=== PATIENT | male | born 1980 | race Caucasian/White ===

== ENCOUNTER 2017-04-14 08:57 | Emergency (ER) | payer OTHER ==
[2017-04-14] MEDS: IPRATROPIUM 0.5MG/ALBUTEROL 2.5MG INH SOL UD 3ML (DUONEB)(J7620) NEB (09:20)
== END 2017-04-14 09:41 | disposition home or self-care (01) ==
LOC: M ED 08:57
DX: J20.9 Acute bronchitis, unspecified (principal)
CPT/HCPCS: 94640

== ENCOUNTER 2018-06-15 01:27 | Emergency (ER) | payer OTHER, SELFPAY ==
[~2018-06-15] VITALS: Ht 188 cm; Wt 122.7 kg
[~2018-06-15 01:27] MED LIST: ALBU83IN INH; PRED20TA PO
[2018-06-15] MEDS ORDERED: ZANA2CAP PO (01:33)
[2018-06-15] MEDS ORDERED: MELO15TA28 PO (01:33)
[2018-06-15] MEDS ORDERED: KETOROLAC 30 MG/ML VIAL (J1885) As Ordered ONE (01:43)
[2018-06-15] MEDS ORDERED: MORPHINE 4 MG/ML 1ML VIAL/SYRINGE (J2270) As Ordered ONE (01:59)
[2018-06-15] MEDS ORDERED: NS 1,000 ML IV ONE (02:00)
[2018-06-15] MEDS ORDERED: MORPHINE 4 MG/ML 1ML VIAL/SYRINGE (J2270) IV PRN (02:00)
[2018-06-15] MEDS ORDERED: ONDANSETRON 4MG/2ML VIAL (J2405) IV ONE (02:00)
[2018-06-15] MEDS ORDERED: KETOROLAC 30 MG/ML VIAL (J1885) IV ONE (02:00)
[2018-06-15] MEDS ORDERED: METAL LOCK LOOP XX ONE (02:02)
[2018-06-15 02:06] LABS: BASO # 0.1 10^3/uL (0.0-0.2); EOS # 0.4 10^3/uL (0.0-0.50); EOS % 2.8 % (0.0-3.0); HEMATOCRIT 44.1 % (42.0-52.0); HEMOGLOBIN 15.1 g/dl (13.5-17.5); LYMPH # 4.5 10^3/uL (1.5-4.5); LYMPH % 31.6 % (24.0-44.0); MEAN CORPUSCULAR HEMOGLOBIN 31.7 pg (27.0-33.0); MEAN CORPUSCULAR HGB CONC 34.2 g/dl (32.0-36.5); MEAN CORPUSCULAR VOLUME 92.5 fl (80.0-96.0); MONO # 1.2 10^3/uL (0.0-0.8); MONO % 8.8 % (0.0-5.0); NEUTROPHILS # 7.8 10^3/uL (1.8-7.7); PLATELET COUNT, AUTOMATED 321 10^3/uL (150-450); RED BLOOD COUNT 4.77 10^6/uL (4.30-6.10); WHITE BLOOD COUNT 14.1 10^3/uL (4.0-10.0)
[2018-06-15 02:30] LABS: ALT/SGPT 47 U/L (12-78); BILIRUBIN,DIRECT < 0.1 MG/DL (0.0-0.2); BILIRUBIN,TOTAL 0.2 MG/DL (0.2-1.0); BLOOD UREA NITROGEN 18 MG/DL (7-18); CALCIUM LEVEL 8.5 MG/DL (8.5-10.1); CARBON DIOXIDE LEVEL 27 MEQ/L (21-32); CHLORIDE LEVEL 106 MEQ/L (98-107); CREATININE FOR GFR 1.22 MG/DL (0.70-1.30); GLOMERULAR FILTRATION RATE > 60.0 (>60); GLUCOSE, FASTING 137 MG/DL (70-100); LIPASE 225 U/L (73-393); POTASSIUM SERUM 3.6 MEQ/L (3.5-5.1); SODIUM LEVEL 141 MEQ/L (136-145); TOTAL PROTEIN 7.5 GM/DL (6.4-8.2)
[2018-06-15] MEDS ORDERED: METOCLOPRAMIDE INJ 10MG/2ML VIAL (J2765) IV ONE (02:45)
--- NOTE | 2018-06-15 04:03 | REPVR ---
EXAM: CT Abdomen and Pelvis Without Contrast EXAM DATE/TIME: 06/15/2018 3:06 AM CLINICAL HISTORY: 38 years old, male; Pain; Abdominal pain; Flank; Right; Additional info: Right sided flank/abd pain TECHNIQUE: Axial computed tomography images of the abdomen and pelvis without contrast. All CT scans at this facility use at least one of these dose optimization techniques: automated exposure control; mA and/or kV adjustment per patient size (includes targeted exams where dose is matched to clinical indication); or iterative reconstruction. Coronal and sagittal reformatted images were created and reviewed. COMPARISON: No relevant prior studies available. FINDINGS: Lower thorax: There is minimal bibasilar subsegmental atelectasis. ABDOMEN: Liver: There are no focal liver lesions present. Gallbladder and bile ducts: The gallbladder appears partially contracted. No stones are identified. No biliary ductal dilation is seen. Pancreas: The pancreas is normal with no ductal dilation. Spleen: The spleen is normal. Adrenals: The adrenal glands are normal. Kidneys and ureters: There is mild right hydronephrosis. There is mild right sided perinephric stranding. There is an obstructing 4 x 5 mm stone in the distal right ureter, approximately 2 cm from the UVJ. The left ureter appears normal with no stones or hydronephrosis. Stomach and bowel: The small bowel appears unremarkable. There is no dilation or thickening of the colon. Appendix: A normal appendix is identified. PELVIS: Bladder: The bladder is mostly collapsed. No bladder stones are identified. Reproductive: The prostate gland and seminal vesicles are normal. ABDOMEN and PELVIS: Intraperitoneal space: There is no evidence of free intraperitoneal or pelvic fluid. There is no free intraperitoneal air. Bones/joints: No suspicious osseous lesions. No acute fractures or dislocations. Bilateral pars defects are noted at L5 with no associated listhesis. Degenerative disc disease is present at L5-S1. Soft tissues: Unremarkable. Vasculature: The aorta is normal. No aneurysm. Lymph nodes: No lymphadenopathy is seen. IMPRESSION: Obstructing 4 x 5 mm stone in the distal right ureter with associated mild right-sided hydronephrosis and mild right perinephric stranding. Electronically signed by: Julianne Denny On 06/15/2018 04:02:23 AM
[2018-06-15] MEDS ORDERED: CIPR-249 PO (05:00)
[2018-06-15] MEDS ORDERED: FLOM0.4C39 PO (05:00)
[2018-06-15] MEDS ORDERED: PERC5TAB12 PO (05:00)
[2018-06-15] MEDS ORDERED: OXYCODONE/APAP 5MG/325MG(BULK FOR ED) 1 TABLET PO ONE (05:00)
[2018-06-15] MEDS ORDERED: CIPROFLOXACIN 500 MG TAB PO ONE (05:00)
[2018-06-15] MEDS ORDERED: TAMSULOSIN 0.4 MG CAP PO ONE (05:00)
[2018-06-15] MEDS ORDERED: HYDROMORPHONE HCL 0.5 MG/ 0.5 ML SYRINGE (J1170 PER 1) IV PRN (05:00)
[2018-06-15 05:20] VITALS: BP 123/79
== END 2018-06-15 05:22 | disposition home or self-care (01) ==
LOC: M ED 01:27
DX: N20.1 Calculus of ureter (principal); M51.9 Unspecified thoracic, thoracolumbar and lumbosacral intervertebral disc disorder; Z79.899 Other long term (current) drug therapy
CPT/HCPCS: 74176; 80048; 80076; 81001; 83605; 83690; 85025; 93041; 96361; 96374; 96375; 99284; J1885; J2270; J2405; J2765

== ENCOUNTER 2018-12-03 03:05 | Emergency (ER) | payer OTHER, SELFPAY ==
[~2018-12-03] VITALS: Ht 185.4 cm; Wt 122.7 kg
[2018-12-03 03:05] VITALS: BP 132/79
[~2018-12-03 03:05] MED LIST changes: +CIPR-249 PO; +FLOM0.4C39 PO; +MELO15TA28 PO; +PERC5TAB12 PO; +ZANA2CAP PO
[2018-12-03] MEDS ORDERED: KEFL500C17 PO (03:53)
[2018-12-03] MEDS ORDERED: CEPHALEXIN 500 MG CAP PO ONE (04:00)
[2018-12-03] MEDS ORDERED: predniSONE 20 MG TAB PO ONE (04:00)
== END 2018-12-03 04:02 | disposition home or self-care (01) ==
LOC: M ED 03:05
DX: L03.114 Cellulitis of left upper limb (principal)

== ENCOUNTER → 2021-01-16 | Outpatient (CLI) | payer OTHER ==
[~2021-01-16] MED LIST changes: +KEFL500C17 PO
--- NOTE | 2021-01-16 10:13 | REP ---
INDICATION: LOW BACK PAIN, UNSPECIFIED COMPARISON: None. TECHNIQUE: AP, lateral, bilateral oblique, and coned-down views of the lumbar spine. FINDINGS: Straightening of normal lordosis is appreciated and the lower thoracic through L4-5 level appears normal. Advanced degenerative changes at L5-S1 includes endplate sclerosis, osteophytosis, disc space narrowing, and facet hypertrophy which may be secondary to chronic bilateral L5 spondylolysis without spondylolisthesis. IMPRESSION: Focal degenerative spondylosis at L5-S1. <Electronically signed by Gallo Magdaleno > 01/16/21 [id number]
== END ==
LOC: M RAD 09:50
PROVIDERS: ATTEND Family Medicine Addiction Medicine
DX: M47.817 Spondylosis without myelopathy or radiculopathy, lumbosacral region (principal); M54.50 Low back pain, unspecified

== ENCOUNTER 2022-01-18 00:03 | Emergency (ER) | payer OTHER ==
[~2022-01-18] VITALS: Ht 185.4 cm; Wt 123.1 kg
[~2022-01-18 00:03] MED LIST changes: +ALBU2.5V10 INH; -ALBU83IN INH
[2022-01-18 00:04] VITALS: BP 136/67
[2022-01-18] MEDS ORDERED: LOPI600T (00:14)
[2022-01-18] MEDS ORDERED: METH-1165 PO (12:52)
== END 2022-01-18 02:49 | disposition left against medical advice (07) ==
LOC: M ED 00:03
DX: Z53.21 Procedure and treatment not carried out due to patient leaving prior to being seen by health care provider (principal)

== ENCOUNTER 2022-01-18 06:01 | Emergency (ER) | payer OTHER ==
[~2022-01-18] VITALS: Ht 185.4 cm; Wt 123.0 kg
[~2022-01-18 06:01] MED LIST changes: +LOPI600T
[2022-01-18] MEDS ORDERED: ACETAMINOPHEN TAB 650MG DOSE (2X325MG) PO ONE (11:20)
[2022-01-18] MEDS ORDERED: KETOROLAC 60MG 2ML VIAL IM ONE (11:20)
[2022-01-18 11:55] VITALS: BP 140/77
[2022-01-18] MEDS ORDERED: METH-1165 PO (12:52)
== END 2022-01-18 13:12 | disposition home or self-care (01) ==
LOC: M ED 06:01
DX: M54.32 Sciatica, left side (principal)
CPT/HCPCS: 96372; 99283; J1885

== ENCOUNTER → 2022-05-25 | Outpatient (REF) | payer OTHER, MEDICAID ==
[~2022-05-25] MED LIST changes: +METH-1165 PO
[2022-05-25 13:29] LABS: ALKALINE PHOSPHATASE 101 U/L (46-116); ALT/SGPT 30 U/L (7.0-40); AST/SGOT 30 U/L (<34); BILIRUBIN,TOTAL 0.3 MG/DL (0.3-1.2); BLOOD UREA NITROGEN 24 MG/DL (9-23); CALCIUM LEVEL 8.8 MG/DL (8.5-10.1); CARBON DIOXIDE LEVEL 26 MMOL/L (20-31); CHLORIDE LEVEL 107 MMOL/L (98-107); CHOLESTEROL LEVEL 189 MG/DL (<200); CHOLESTEROL RISK RATIO 6.84 (<5); CREATININE FOR GFR 0.87 MG/DL (0.70-1.30); GLOMERULAR FILTRATION RATE > 60.0 (>60); GLUCOSE, FASTING 85 MG/DL (60-100); HDL CHOLESTEROL 27.6 MG/DL (>40); NON-HDL-C 161 MG/DL; POTASSIUM SERUM 4.1 MMOL/L (3.5-5.1); SODIUM LEVEL 140 MMOL/L (136-145); TRIGLYCERIDES LEVEL 631 MG/DL (<150)
[2022-05-25 13:34] LABS: THYROID STIMULATING HORMONE 0.789 uIU/ML (0.55-4.78)
== END ==
LOC: M LAB REF 11:40
PROVIDERS: ATTEND Family Medicine Addiction Medicine
DX: E78.1 Pure hyperglyceridemia (principal)

== ENCOUNTER → 2022-08-24 | Outpatient (REF) | payer OTHER, MEDICAID ==
[2022-08-24 12:23] LABS: ALBUMIN 4.3 G/DL (3.2-5.2); ALKALINE PHOSPHATASE 99 U/L (46-116); ALT/SGPT 39 U/L (7.0-40); AST/SGOT 24 U/L (<34); BILIRUBIN,TOTAL 0.4 MG/DL (0.3-1.2); BLOOD UREA NITROGEN 21 MG/DL (9-23); CALCIUM LEVEL 8.9 MG/DL (8.5-10.1); CARBON DIOXIDE LEVEL 25 MMOL/L (20-31); CHLORIDE LEVEL 107 MMOL/L (98-107); CHOLESTEROL LEVEL 147 MG/DL (<200); CHOLESTEROL RISK RATIO 4.63 (<5); CREATININE FOR GFR 0.92 MG/DL (0.70-1.30); GLOMERULAR FILTRATION RATE > 60.0 (>60); GLUCOSE, FASTING 88 MG/DL (60-100); HDL CHOLESTEROL 31.7 MG/DL (>40); LDL CHOLESTEROL 83.3 MG/DL (<100); NON-HDL-C 115.3 MG/DL; POTASSIUM SERUM 4.5 MMOL/L (3.5-5.1); SODIUM LEVEL 141 MMOL/L (136-145); TOTAL PROTEIN 7.2 G/DL (5.7-8.2); TRIGLYCERIDES LEVEL 160 MG/DL (<150)
[2022-08-24 12:24] LABS: THYROID STIMULATING HORMONE 1.016 uIU/ML (0.55-4.78)
== END ==
LOC: M LAB REF 11:28
PROVIDERS: ATTEND Family Medicine Addiction Medicine
DX: E78.1 Pure hyperglyceridemia (principal)

== ENCOUNTER 2024-08-11 09:11 | Emergency (ER) | payer MEDICAID, OTHER ==
[~2024-08-11] VITALS: Ht 185.4 cm; Wt 116.5 kg
[~2024-08-11 09:11] MED LIST changes: -FLOM0.4C39 PO; +TAMS-18 PO
[2024-08-11] MEDS ORDERED: IBUP200C25 PO (09:23)
[2024-08-11 11:36] VITALS: BP 161/90; TEMP 96.9; O2SAT 99
== END 2024-08-11 11:41 | disposition home or self-care (01) ==
LOC: M ED 09:11
DX: S93.401A Sprain of unspecified ligament of right ankle, initial encounter (principal); Y92.9 Unspecified place or not applicable; Y93.9 Activity, unspecified; Y99.0 Civilian activity done for income or pay; Z79.1 Long term (current) use of non-steroidal anti-inflammatories (NSAID)